=== PATIENT | female | born 1965 | race Caucasian/White ===

== ENCOUNTER 2022-03-06 11:06 | Emergency (ER) | payer OTHER, SELFPAY ==
--- NOTE | ~2022-03-06 | CT_ITS ---
EXAMINATION: CT CERVICAL SPINE WITHOUT CONTRAST CLINICAL INFORMATION: Cervical pain, injury at work. COMPARISON: None TECHNIQUE: Multiple axial images of the cervical spine were obtained without the administration of intravenous contrast. Oral and sagittal reformatted images were obtained. This CT examination was performed using dose optimization techniques as appropriate, variously including the following: *Automated exposure control *Adjustment of mA and/or kV according to patient size (this includes techniques or standardized protocols for targeted exams where dose is matched to indication/reason for exam; i.e. extremities or head) *Use of iterative reconstruction technique DLP: 294 mGy-cm FINDINGS: There is straightening of the normal cervical lordosis with normal spinal alignment. The vertebral bodies are intact. Mild to moderate multilevel degenerative disc disease is seen most pronounced at C6-7. Minimal grade 1 anterolisthesis of C3 over C4. Mild bilateral neural foraminal narrowing. Mild to moderate bilateral facet arthropathy. The spinous processes are intact. The odontoid process is intact with mild articular degenerative changes. The cervical soft tissues are unremarkable. There is no lymphadenopathy. The thyroid gland is unremarkable. Minimal biapical scarring. Mild biapical centrilobular emphysema. CT/CT cervical spine wo con IMPRESSION: 1. Straightening of the normal cervical lordosis may be secondary to positioning and/or muscle spasm. 2. Mild to moderate multilevel degenerative changes. No acute abnormality. 3. Mild biapical centrilobular emphysema.
[2022-03-06 11:11] VITALS: BP 117/78; PULSE 88; RESP 19; TEMP 37.2; O2SAT 98; BMI 22.6
--- NOTE | 2022-03-06 14:35 | ED.NECK ---
HPI - Neck Pain/Injury General Chief Complaint: Back Pain/Injury Stated Complaint: Neck inj/work related Time Seen by Provider: 03/06/22 14:25 Source: patient Mode of arrival: ambulatory Limitations: no limitations History of Present Illness HPI Narrative: Patient presents emergency department for evaluation of fall left-sided neck pain radiating down the arm. 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 She feels intermittent tingling to the left arm. Denies any prior neck injury or conditions. Denies headache, dizziness, lightheadedness Related Data Previous Rx's Medication Instructions Recorded cyclobenzaprine 10 mg tablet 10 mg PO TID PRN muscle spasm #14 03/06/22 tabs ibuprofen 600 mg tablet 600 mg PO Q8H PRN pain 4 days #14 03/06/22 tabs Allergies Allergy/AdvReac Type Severity Reaction Status Date / Time Cephalosporins Allergy Unknown Unknown Verified 03/06/22 14:34 Review of Systems Review of Systems: Musculoskeletal: Positive neck pain. Positive muscle spasm. Positive arm pain Yes all other systems are reviewed and are negative [facility] Past Medical History Attestation statement: The following information was validated with the patient. Source: old records reviewed Social History Social History Advance Directives: No Advance Directives Information Provided: No Physical Exam Vital Signs: Vital Signs: Last Vital Signs Temp 99 F 03/06/22 11:11 Pulse 88 03/06/22 11:11 Resp 19 03/06/22 11:11 BP 117/78 03/06/22 11:11 Pulse Ox 98 03/06/22 11:11 O2 Del Method 03/06/22 11:11 BMI result Body Mass Index 22.6 Appearance: Alert.?Oriented to person, place and time. No acute distress.?Normal affect. Eyes: Pupils equal, round and reactive to light.? ENT: Pharynx normal.?? Neck: Normal inspection.? Neck supple.??Midline cervical spine tenderness, no step-offs or deformities. Tenderness upon palpation of the left paraspinal muscles CVS: Heart sounds normal. Normal heart rate and rhythm.? Pulses normal.?? Respiratory: No respiratory distress.? Lung sounds clear to auscultation bilaterally?? Abdomen: Soft and non-tender. ? Skin: Skin warm and dry.? Normal skin color.? Extremities: No lower extremity edema.? Neuro: Moves all extremities spontaneously. Sensation intact bilaterally. CN II-XII intact. No focal neuro deficits. Ambulates with normal steady gait. 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 She does have midline cervical spine tenderness on palpation, will obtain CT of the cervical spine to evaluate for fracture dislocation. She appears in significant discomfort she is crying, has limited range of motion to the neck and her left arm. No focal neurological deficits. No weakness to the arm. Trial a course of Valium p.o., she took ibuprofen at 1100, not be candidate to trial IM Toradol at this time. pain 04/24 Reevaluation(s) Reevaluation #1: Patient reports improvement in muscle spasms after Valium pain currnelty 01/22. CT of the cervical spine reveals straightening likely secondary to positioning or muscle spasm, mild to moderate multilevel degenerative changes but no acute abnormalities. Pain seems most consistent with muscular pain, although cannot completely exclude herniated disc. On neurological exam there are no deficits. Not consistent with spinal fracture, spinal infection, epidural abscess, epidural abscess. No high risk past medical history including incontinence, fever, immunosuppression, recent surgery or lumbar puncture, coagulopathy, significant trauma, recent unintentional weight loss, pulsatile mass, history of cancer, history of TB, history of IV drug use that would warrant MRI. Plan for discharge home with prescription for ibuprofen and cyclobenzaprine, and follow-up with primary care provider, and patient agreed with plan. Time: 16:25 [facility] - Neck Pain/Injury Medical Records Attestation: I reviewed the patient's medical records. Imaging Data CT cervical spine: Radiologist's impression: CT/CT cervical spine wo con IMPRESSION: 1. Straightening of the normal cervical lordosis may be secondary to positioning and/or muscle spasm. 2. Mild to moderate multilevel degenerative changes. No acute abnormality. 3. Mild biapical centrilobular emphysema. Discharge Plan Discharge Clinical Impression: Cervical muscle strain Patient Disposition: Home, Self-Care Instructions: Cervical Strain (ED) Additional Instructions: As we discussed, the CT scan shows no acute abnormalities there is evidence of multilevel degenerative changes. You have been given a prescription for ibuprofen in addition to cyclobenzaprine. Cyclobenzaprine is a muscle relaxer, which may make you drowsy, you should not drive, operate machinery, or drink alcohol while taking this medication. Please contact your primary care provider to arrange for a follow-up visit. You may return to the emergency department any new or worsening symptoms or concerns Prescriptions: New cyclobenzaprine 10 mg tablet 10 mg PO TID PRN (Reason: muscle spasm) Qty: 14 0RF ibuprofen 600 mg tablet 600 mg PO Q8H PRN (Reason: pain) 4 Days Qty: 14 0RF Stand Alone Forms: Work/School Release Interventions: ED Discharge Assessment Last Done: 03/06/22 17:01 Discharge Date/Time: 03/06/22 17:01
[2022-03-06] MEDS: diazePAM 2 MG TABLET PO (14:43)
== END 2022-03-06 17:01 | disposition home or self-care (01) ==
PROVIDERS: Emergency Provider Emergency Medicine
DX: S16.1XXA Strain of muscle, fascia and tendon at neck level, initial encounter (principal); X50.9XXA Other and unspecified overexertion or strenuous movements or postures, initial encounter; Y93.F2 Activity, caregiving, lifting; Y92.239 Unspecified place in hospital as the place of occurrence of the external cause; Y99.0 Civilian activity done for income or pay
CPT/HCPCS: 72125; 99283; 99284

== ENCOUNTER 2025-02-10 07:19 | Day surgery (SDC) | payer BC, SELFPAY ==
--- OUTSIDE RECORDS SUMMARY | 2024-12-23 15:32 | XMS_ITS | Encounter Summary ---
Author Organization [employer] Address [address] [place] [address] Care Team Providers Care Hog Stomach Preparer Name Role Phone Tia Gay MD Primary Care Prov ider Reason for Visit * Reason Onset Date Comments Rectal Bleeding 12/22/2024 Encounter Details Date Type Department Care Team ([facility] st Contact Info) Description 12/22/2024 Telephone Adult Medicine - [place] [address] [place] [id number] Tia Gay MD [address] [place] [address] Rectal Bleeding Social History Tobacco Use Types Packs/Day Years Used Date Smoking Tobacco: Former Cigarettes Smokeless Tobacco: Never Alcohol Use Standard Drinks/Week Comments Yes 0 (1 standard drink = 0.6 oz pur e alcohol) Comments Unknown Sex and Gender Information Value Date Recorded Sex Assigned at Not on file Legal Sex Female 9:51 PM EST Gender Identity Not on file Sexual Orientation Not on file documented as of this encounter Progress Notes * Brissa Romero MA - 12/23/2024 9:46 AM EDT Booked patient in for this Sunday at 1030am. This was okay to add per Dr. Thrasher. * Tia Gay MD - 12/22/2024 5:25 PM EDT Talk to patient okay to reschedule * Jarad Konstantin - 12/22/2024 1:05 PM EDT Patient calling has not seen since 2020, I explained to patient that after 3 years theyare considered a new patient and that we are not taking as of right now. 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 States she has been very busy with the healthcare demands since . Told me that she and have a very close and strong relationship and would like her to call her She states today she is in a very dire situation. Has a upcoming consult with Gi for rectal bleeding due to menopause. Please give patient a call when possible. P: [phone] P: [phone] documented in this encounter Plan of Treatment Upcoming Encounters Date Type Department Care Team (Late st Contact Info) Description 12/26/2024 10:30 AM EDT Office Visit Adult Medicine - [place] [address] [place] [phone] Tia Gay MD [address] [place] [address] documented as of this encounter Visit Diagnoses Not on filedocumented in this encounter Care Teams Hog Stomach Preparer Relationship Specialty Start Date End Date Tia Gay MD [address] [place] [address] PCP - General Internal Medicine 12/02/19 documented as of this encounter
[2025-02-04 10:37] VITALS: BP 110/68; PULSE 58; RESP 16; O2SAT 100; BMI 23.6
--- NOTE | 2025-02-04 10:59 | HO.ANESPROP2 ---
Documented by User: Celine Ng NP 02/04/25 11:19 HPI - Anesthesia Eval Consult details Narrative: 59 yr old female for colonoscopy, here for PAT visit No recent illness No CP/SOB, still works as RN manager maritime H/O idiopathic hypotension, bradycardia, recently asymptomatic; last seen by cards 01/2025 Dr. Gallardo, home sleep study, cortisol levels, holter to be placed 02/06/25. H/O throat trauma, difficulty swallowing with pressure applied anterior neck in full extension PMFSH Past Medical History Medical History Difficulty swallowing Uterine fibroid Rectal prolapse Uterine prolapse Hyperthyroidism Depression Idiopathic hypotension Precancerous changes of the cervix Melanoma Bradycardia Functional capacity: independent ambulation Family History Family history of problems with anesthesia: No Surgical History Surgical History Hx of local excision of skin lesion H/O colonoscopy Hx of breast augmentation History of Problems with Anesthesia: No Social History Social History Are you a primary child care worker to a significant other at home: No Do you presently have visiting nurse or other home services: No Frequency of e-Cigarette/Vaping Use: daily Use of substances other than those prescribed or required for medical reasons: No Have you been hit, kicked, punched, or otherwise hurt by someone within the past year? If so, by whom?: No Are you DNR?: No Advance Directives: No Advance Directives Information Provided: Yes Advance Directives on File: No Patient : No : No Poor oral hygiene: Yes Meds Allergies Allergy/AdvReac Type Severity Reaction Status Date / Time Cephalosporins Allergy Unknown Unknown Verified 02/10/25 08:24 Home Medications ?Medication ?Instructions ?Recorded ?Confirmed ?Last Taken ?Type No Known Home Meds 02/04/25 02/04/25 Unknown History Exam Height,Weight and Vital Signs: Height 5 ft Weight 54.885 kg Last Vital Signs Pulse 58 02/04/25 10:37 Resp 16 02/04/25 10:37 BP 110/68 02/04/25 10:37 Pulse Ox 100 02/04/25 10:37 O2 Del Method Room Air 02/04/25 10:37 Narrative Narrative: EKG 01/2025 sinus bradycardia, possible left atrial enlargement, no significant change was found when compared to ECG 09/2024 Echo 2019 Stress echo 2019 Airway Mallampati Class: I TM Dist: >3cm Neck ROM: Full Loose/Missing/Broken Teeth: No Heart: RRR Lungs: CTAB Assessment and Plan Final Anesthetic Review Family History of Problems with Anesthesia: No History of Problems with Anesthesia: No Documented by User: Francis Samuel MD 02/10/25 08:45 PMFSH Past Medical History Medical History Difficulty swallowing Uterine fibroid Rectal prolapse Uterine prolapse Hyperthyroidism Depression Idiopathic hypotension Precancerous changes of the cervix Melanoma Bradycardia Surgical History Surgical History Hx of local excision of skin lesion H/O colonoscopy Hx of breast augmentation Social History Social History Are you a primary child care worker to a significant other at home: No Do you presently have visiting nurse or other home services: No Frequency of e-Cigarette/Vaping Use: daily Use of substances other than those prescribed or required for medical reasons: No Have you been hit, kicked, punched, or otherwise hurt by someone within the past year? If so, by whom?: No Are you DNR?: No Advance Directives: No Advance Directives Information Provided: Yes Advance Directives on File: No Patient : No : No Poor oral hygiene: Yes Meds Allergies Allergy/AdvReac Type Severity Reaction Status Date / Time Cephalosporins Allergy Unknown Unknown Verified 02/10/25 08:24 Home Medications ?Medication ?Instructions ?Recorded ?Confirmed ?Last Taken ?Type No Known Home Meds 02/04/25 02/04/25 Unknown History Assessment and Plan Assessment Anesthesia Assessment: Anesthesia Plan Discussed and Chart Reviewed Final Anesthetic Review NPO: Yes ASA Class: II Final Preanesthetic Review: No Changes in Pt Med Stat, Meds/Allgs Chart Reviewed, Consent Obtained/Reviewed and Anes Risks/Benef Reviewed Patient Risk: Low Procedure Risk: Low Anesthetic Plan Anesthetic Plan: TIVA Disposition: Standard PACU
[2025-02-10 08:25] VITALS: BP 108/52; PULSE 55; RESP 12; TEMP 36.9; O2SAT 100
[2025-02-10] MEDS: Lactated Ringers 1,000 ML 100 ML IVCONT (08:38)
--- NOTE | 2025-02-10 09:03 | MHC.SHP ---
Pre-Procedural Eval Section A - 24 Hr Update-Section A only Date of Service: 02/10/25 Section B - Complete if H&P > 30 days Chief Complaint: screening Details of Present Illness: see H&P no changes Relevant Family History (Specify if Yes): No Relevant Social History: None Present Medications: see Short Stay Collaborative assessment Medical History: No relevant PMH History of Previous Operations: No relevant previous surgery Allergies: Allergies Allergy/AdvReac Type Severity Reaction Status Date / Time Cephalosporins Allergy Unknown Unknown Verified 02/10/25 08:24 Review of Systems Sugical H&P ROS: Negative: Constitution, Cardiovascular, Respiratory, Neurological, Psychiatric, Hem-Onc, Allergic/Immunologic, Gastrointestinal, Genitourinary, Musculoskeletal, Integumentary, Endocrine and Eyes/Ears/Nose/Throat Exam Surgical H&P Exam: Normal: HEENT, Normal: Heart, Normal: Lungs, Normal: Extremities, Normal: Abdomen, Normal: Skin and Normal: Neurological Plan Diagnosis/Plan: Unchanged I have reviewed the history and physical and performed a pertinent physical examination on my patient. No changes have occurred unless specified. Time Spent With Patient Time: Total time managing care of this patient today ____ minutes.
--- NOTE | 2025-02-10 09:45 | PM.OP ---
Brief Operative Note Date of Service: 02/10/25 Pre-op diagnosis: screening Post-op diagnosis: same Surgeon: Rahat Romero MD Anesthesia: MAC Was an Sweat Band Separator used for this Procedure?: No Estimated blood loss (mL): 5 Pathology: none sent Condition: stable Disposition: PACU
[2025-02-10 09:47] VITALS: BP 97/56; PULSE 63; RESP 16; TEMP 36.6; O2SAT 100
[2025-02-10 10:02] VITALS: BP 99/48; PULSE 60; RESP 20; TEMP 36.4; O2SAT 99
--- NOTE | 2025-02-10 10:25 | OP_ITS ---
DATE OF SERVICE: 02/10/2025 SURGEON: Rahat Romero MD INDICATIONS: Colon cancer screening and left lower quadrant pain. PREOPERATIVE DIAGNOSIS: POSTOPERATIVE DIAGNOSIS: PROCEDURE PERFORMED: Colonoscopy to the terminal ileum with biopsy and snare polypectomy. ESTIMATED BLOOD LOSS: COMPLICATIONS: ANESTHESIA: Monitored anesthesia care. ASSISTANTS: SPECIMENS: DESCRIPTION OF PROCEDURE: A history and physical was performed. The risks and benefits of the procedure were explained to the patient. Informed consent was obtained. The patient was placed in the left lateral decubitus position. A digital rectal exam was performed and was found to be normal. The Olympus pediatric video colonoscope was introduced into the rectum and advanced to the cecum. The cecum was identified by transillumination, palpation, and identification of ileocecal valve. Examination was performed. The scope was removed. She tolerated the procedure well and was returned to the recovery area in stable condition. FINDINGS: The terminal ileum was examined and appeared normal. The visualized colonic mucosa was normal. The quality of the prep was good. The colon appeared to lie in the left side of the abdomen and transillumination did not show the typical illumination in the right lower quadrant. However, illumination was identified near the left side in the midline. Multiple polyps were identified, all were 10 mm or less. Two were removed with the biopsy forceps in the right colon and at 90 cm, and 2 were removed with a snare. The largest at 25 cm measuring approximately 10 mm, the next one at 20 cm measuring approximately 6 mm. Retroflexed examination showed some hypertrophic anal papillae. Prior to removal of the scope in the rectum, gloves were changed and posterior digital exam in the vaginal area showed a small cystocele that was identified by retroflexing the scope and visualization digital impression. IMPRESSION: Colon polyps. RECOMMENDATION: Follow up the biopsy results. MD RASHID Sanchez/NASIR / [id number]
--- NOTE | 2025-02-23 08:34 | PM.EVENT ---
Event Note Date of Service: 02/23/25 Event Note: Addendum to colonoscopy report. The digital exam described at the end of the colonoscopy report showed a rectocele, not a cystocele. Time Spent With Patient Time: Total time managing care of this patient today ____ minutes.
== END 2025-02-10 11:28 | disposition home or self-care (01) ==
PROVIDERS: Visit Provider Internal Medicine Gastroenterology
PROC: 0DJD8ZZ Inspection of Lower Intestinal Tract, Via Natural or Artificial Opening Endoscopic (ICD-10-PCS; CPT 45378; principal; 2025-02-10 09:10)
DX: Z12.11 Encounter for screening for malignant neoplasm of colon (principal); D12.2 Benign neoplasm of ascending colon; D12.3 Benign neoplasm of transverse colon; D12.5 Benign neoplasm of sigmoid colon; K59.00 Constipation, unspecified; R10.32 Left lower quadrant pain; N81.6 Rectocele; K62.89 Other specified diseases of anus and rectum; R63.4 Abnormal weight loss; Z68.22 Body mass index [BMI] 22.0-22.9, adult; R00.1 Bradycardia, unspecified; Z85.820 Personal history of malignant melanoma of skin; Z88.8 Allergy status to other drugs, medicaments and biological substances; Z98.890 Other specified postprocedural states
CPT/HCPCS: 45385; 45380; 88305; J2003; J2704